=== PATIENT | female | born 1985 | race African-American/Black ===

== ENCOUNTER 2017-07-27 21:37 | Emergency (ER) | payer MEDICARE, MEDICAID ==
[~2017-07-27] VITALS: Ht 162.6 cm; Wt 127.0 kg
[~2017-07-27 21:37] MED LIST: AMOXICILLIN875 MG OR; NAPROSYN500 MG PO; PRENATAL1 TA1 PO
[2017-07-27 22:54] LABS: IMMATURE GRANULOCYTES 0.4 % (0.0-1.0); MEAN CORPUSCULAR HGB 27.3 pG CALC (26.0-32.0); MEAN CORPUSCULAR HGB CONC 32.3 g/L CALC (32.0-36.0); NEUT# 4.37 thou/uL (2.00-7.15); RED BLOOD COUNT 4.66 mill/uL (4.20-5.60); RED CELL DISTRI WIDTH 12.9 % (11.5-15.5)
[2017-07-27 22:57] LABS: HEMATOCRIT 39.3 % (37.0-47.0); HEMOGLOBIN 12.7 g/dl (12.0-16.0)
[2017-07-27 22:58] LABS: MEAN CELL VOLUME 84.3 fL CALC (80.0-100.0)
[2017-07-27 23:02] LABS: ALKALINE PHOSPHATASE 79 u/l (38-126); ANION GAP 15 (6-22 (CALC)); BILIRUBIN, TOTAL 0.4 mg/dL (0.0-1.4); BUN 11 mg/dL (7-17); BUN/CREATININE RATIO 14 (12-20 (CALC)); CARBON DIOXIDE 25 mmol/l (22-30); CHLORIDE 102 mmol/l (95-108); CREATININE 0.8 mg/dL (0.5-1.0); GFR > 60 ML/MIN (>=60 (CALC)); GFR FOR AFR.AMER. > 60 ML/MIN (>=60 (CALC)); SGOT/AST 19 u/l (14-36); SGPT/ALT 34 u/l (9-52); SODIUM 138 mmol/l (137-146)
[2017-07-27 23:08] LABS: ALBUMIN 3.9 g/dL (3.2-5.0); TOTAL PROTEIN 7.9 g/dL (6.3-8.2)
[2017-07-27 23:13] LABS: MYOGLOBIN 29 ng/mL (0 - 62)
[2017-07-27] MEDS ORDERED: NAPROSYN500 MG PO (23:38)
[2017-07-28 00:38] VITALS: BP 131/89
== END 2017-07-28 00:30 | disposition home or self-care (01) ==
LOC: ED 21:37
PROVIDERS: Emergency Medicine
DX: R07.89 Other chest pain (principal)

== ENCOUNTER 2020-05-22 20:51 | Emergency (ER) | payer MEDICARE, MEDICAID ==
[~2020-05-22] VITALS: Ht 162.6 cm; Wt 131.0 kg
[2020-05-22] MEDS ORDERED: BENADRYL 50MG C50 MG PO (21:50)
[2020-05-22] MEDS ORDERED: KEFLEX500 M1 PO (21:50)
[2020-05-23 00:15] VITALS: BP 110/60
== END 2020-05-23 00:15 | disposition home or self-care (01) ==
LOC: ED 20:51
DX: L50.9 Urticaria, unspecified (principal); S40.862A Insect bite (nonvenomous) of left upper arm, initial encounter; S40.861A Insect bite (nonvenomous) of right upper arm, initial encounter; W57.XXXA Bitten or stung by nonvenomous insect and other nonvenomous arthropods, initial encounter

== ENCOUNTER 2024-04-24 16:37 | Emergency (ER) | payer MEDICARE, MEDICAID ==
[~2024-04-24] VITALS: Ht 162.6 cm; Wt 112.4 kg
[~2024-04-24 16:37] MED LIST changes: +BENADRYL 50MG C50 MG PO; +KEFLEX500 M1 PO
[2024-04-24] MEDS ORDERED: predniSONE 20 MG/TAB PO ONE (17:35)
[2024-04-24] MEDS ORDERED: IPRATROPIUM-Albuterol 0.5MG-2.5MG/3 ML NEB ONE ×2 (17:35)
[2024-04-24] MEDS ORDERED: VENTOLIN HFA108 MCG PO (17:36)
[2024-04-24] MEDS ORDERED: TAM75CAP PO (17:36)
[2024-04-24] MEDS ORDERED: PREDNISONE50 MG PO (17:36)
[2024-04-24 18:15] VITALS: BP 135/71
== END 2024-04-24 18:16 | disposition home or self-care (01) ==
LOC: ED 16:37
DX: J11.1 Influenza due to unidentified influenza virus with other respiratory manifestations (principal); Z20.822 Contact with and (suspected) exposure to COVID-19